=== PATIENT | male | born 1985 | race Caucasian/White ===

== ENCOUNTER 2021-08-12 21:34 | Emergency (ER) | payer MEDICAID, OTHER ==
[~2021-08-12] VITALS: Ht 177.8 cm; Wt 136.0 kg
[2021-08-13] MEDS ORDERED: HYDROCODONE/ACETAMINOPHEN 5/325MG TABLET PO STA (00:11)
[2021-08-13] MEDS ORDERED: MAGNESIUM/ALUMINUM HYDROXIDE/SIMETHICONE 30ML UDC PO STA (00:25)
[2021-08-13] MEDS ORDERED: VISCOUS LIDOCAINE 2% 15 ML UDC PO STA (00:25)
[2021-08-13 00:45] LABS: BASOPHILS % 0.7 % (0.0-2.0); CHLORIDE 112 mEq/L (98-107); EOSINOPHILS % 2.9 % (0.0-5.0); HEMATOCRIT. 43.3 % (42.0-52.0); LYMPHOCYTES % 27.4 % (20.0-50.0); MEAN CORPUSCULAR HEMOGLOBIN 30.8 pg (28.0-32.0); MEAN CORPUSCULAR VOLUME 88.8 fL (80.0-94.0); MEAN PLATELET VOLUME 8.9 fl (7.4-10.4); MONOCYTES % 7.3 % (2.0-8.0); NEUTROPHILS % 61.7 % (40.0-76.0); PLATELET 266 x1000/uL (130-400); RED BLOOD CELL COUNT 4.87 mill/uL (4.7-6.1); RED CELL DISTRIBUTION WIDTH 13.4 % (11.6-14.6)
[2021-08-13 00:49] LABS: ETHANOL BLOOD < 10 mg/dL
[2021-08-13 01:39] LABS: CLARITY URINE CLEAR (CLEAR); COLOR URINE YELLOW (YELLOW); PROTEIN URINE NEGATIVE (NEGATIVE); SPECIFIC GRAVITY URINE 1.033 (1.005-1.030)
[2021-08-13 01:41] LABS: KETONES URINE NEGATIVE (NEGATIVE)
[2021-08-13 01:42] LABS: LEUKOCYTE ESTERASE URINE NEGATIVE (NEGATIVE); NITRITE URINE NEGATIVE (NEGATIVE); OCCULT BLOOD URINE TRACE (NEGATIVE)
[2021-08-13] MEDS ORDERED: MORPHINE SULFATE 2 MG/ML CPJ (NOT FOR IM USE) IV ONE (04:45)
[2021-08-13] MEDS ORDERED: SODIUM CHLORIDE 0.9% 1,000 ML IV ONE (04:45)
[2021-08-13 07:00] VITALS: BP 177/95
== END 2021-08-14 07:12 | disposition short-term general hospital (02) ==
LOC: ER 21:34
DX: K80.20 Calculus of gallbladder without cholecystitis without obstruction (principal); I10 Essential (primary) hypertension; Z90.49 Acquired absence of other specified parts of digestive tract
CPT/HCPCS: 71045; 76705; 93005; 96360; 96361; 99285; J7030

== ENCOUNTER 2023-05-11 17:51 | Inpatient (IN) | payer MEDICAID, OTHER ==
[~2023-05-11] VITALS: Ht 177.8 cm; Wt 145.1 kg
[2023-05-11 18:01] VITALS: O2SAT 98
[2023-05-11] MEDS ORDERED: MORPHINE SULFATE 4 MG/ML CPJ (NOT FOR IM USE) IV STA (18:18)
[2023-05-11] MEDS ORDERED: KETOROLAC 30MG/ML VIAL IV STA (18:18)
[2023-05-11] MEDS ORDERED: SODIUM CHLORIDE 0.9% 1,000 ML IV ONE (18:30)
[2023-05-11 20:02] LABS: BASOPHILS % 0.2 % (0.0-2.0); EOSINOPHILS % 0.2 % (0.0-5.0); HEMATOCRIT. 43.6 % (42.0-52.0); HEMOGLOBIN. 15.5 g/dL (14.0-18.0); LYMPHOCYTES % 14.4 % (20.0-50.0); MEAN CORPUSCULAR HEMOGLOBIN 30.8 pg (28.0-32.0); MEAN CORPUSCULAR VOLUME 86.5 fL (80.0-94.0); MEAN PLATELET VOLUME 9.5 fl (7.4-10.4); MONOCYTES % 8.8 % (2.0-8.0); NEUTROPHILS % 76.4 % (40.0-76.0); PLATELET 238 x1000/uL (130-400); RED BLOOD CELL COUNT 5.04 mill/uL (4.7-6.1)
[2023-05-11 20:05] LABS: CHLORIDE 105 mEq/L (98-107)
[2023-05-11 20:06] LABS: INR 1.1; PROTHROMBIN TIME 11.3 sec (9.6-11.0)
[2023-05-11 21:42] LABS: CLARITY URINE CLEAR (CLEAR); COLOR URINE DARK YELLOW (YELLOW); KETONES URINE 1+ (NEGATIVE); LEUKOCYTE ESTERASE URINE TRACE (NEGATIVE); NITRITE URINE NEGATIVE (NEGATIVE); OCCULT BLOOD URINE 3+ (NEGATIVE); PROTEIN URINE 2+ (NEGATIVE); SPECIFIC GRAVITY URINE 1.036 (1.005-1.030)
[2023-05-12 06:02] VITALS: BP 145/94; PULSE 104; RESP 20; TEMP 98.8
[2023-05-12] MEDS ORDERED: ZOLPIDEM TARTRATE 5MG TABLET PO PRN (06:45)
[2023-05-12] MEDS ORDERED: ONDANSETRON HCL 4MG/2ML INJ IV PRN (06:45)
[2023-05-12] MEDS ORDERED: DOCUSATE SODIUM 100MG CAPSULE PO PRN (06:45)
[2023-05-12] MEDS ORDERED: PIPERACILLIN/TAZ 3.375G PREMIX 50 ML IV SCH (06:45)
[2023-05-12] MEDS ORDERED: CLONIDINE 0.1MG TABLET PO PRN (06:45)
[2023-05-12] MEDS ORDERED: NITROGLYCERIN 0.4MG TABLET SL SL PRN (06:45)
[2023-05-12] MEDS ORDERED: KETOROLAC 15MG/ML VIAL IV PRN (06:45)
[2023-05-12] MEDS ORDERED: ACETAMINOPHEN 325MG TABLET PO PRN ×2 (06:45)
[2023-05-12] MEDS ORDERED: GUAIFENESIN 200MG/10ML SUGAR FREE UDC PO PRN (06:45)
[2023-05-12] MEDS: DEXT 5%/LACTATED RINGERS 1,000 ML IV SCH (06:45)
[2023-05-12] MEDS ORDERED: MAGNESIUM/ALUMINUM HYDROXIDE/SIMETHICONE 30ML UDC PO PRN (06:45)
[2023-05-12] MEDS ORDERED: IPRATROPIUM/ALBUTEROL 0.5-3(2.5)MG/3ML NEB NEB PRN (06:45)
[2023-05-12] MEDS ORDERED: FAMO20TA8 PO (06:55)
[2023-05-12] MEDS ORDERED: CHOL500051 (06:55)
[2023-05-12] MEDS ORDERED: TAMS-11 PO (06:55)
[2023-05-12] MEDS ORDERED: PRAV40TA58 PO (06:55)
[2023-05-12] MEDS ORDERED: AMLO1CAP6 PO (06:55)
[2023-05-12] MEDS ORDERED: ONDA4TAB11 PO (06:55)
[2023-05-12] MEDS ORDERED: HYDR-4001 MT (06:55)
[2023-05-12] MEDS: ENOXAPARIN 40MG/0.4ML SYR SUBCUT SCH (08:00)
[2023-05-12] MEDS: PIPERACILLIN/TAZOBACTAM 3.375G in DEXT 5% WATER 50ML IV SCH ×3 (08:00→22:26)
[2023-05-12 08:08] VITALS: BP 131/78; PULSE 96; RESP 20; TEMP 98
[2023-05-12] MEDS ORDERED: *PATIENT'S OWN MEDICATION STORAGE XX SCH (08:30)
[2023-05-12] MEDS: PANTOPRAZOLE SODIUM 40 MG/VIAL IV SCH (09:00)
[2023-05-12 10:14] LABS: BASOPHILS % 0.3 % (0.0-2.0); EOSINOPHILS % 1.3 % (0.0-5.0); HEMATOCRIT. 42.2 % (42.0-52.0); LYMPHOCYTES % 21.5 % (20.0-50.0); MEAN CORPUSCULAR HEMOGLOBIN 30.8 pg (28.0-32.0); MEAN CORPUSCULAR VOLUME 87.1 fL (80.0-94.0); MONOCYTES % 9.9 % (2.0-8.0); PLATELET 210 x1000/uL (130-400); RED BLOOD CELL COUNT 4.85 mill/uL (4.7-6.1)
[2023-05-12 10:35] LABS: CHLORIDE 108 mEq/L (98-107)
[2023-05-12 10:54] LABS: T4 FREE 1.25 ng/dL (0.76-1.46)
[2023-05-12 13:46] VITALS: BP 142/80; PULSE 84; RESP 20; TEMP 98
[2023-05-12 16:44] VITALS: BP 135/74; PULSE 80; RESP 20; TEMP 97.9
[2023-05-12 20:00] VITALS: BP 113/63; PULSE 86; RESP 19; TEMP 98.3
[2023-05-13] MEDS: DEXT 5%/LACTATED RINGERS 1,000 ML IV SCH ×2 (02:45→12:45)
[2023-05-13 04:00] VITALS: BP 113/60; PULSE 77; RESP 20; TEMP 98.6
[2023-05-13] MEDS: PIPERACILLIN/TAZOBACTAM 3.375G in DEXT 5% WATER 50ML IV SCH ×2 (06:00→13:56)
[2023-05-13] MEDS: ENOXAPARIN 40MG/0.4ML SYR SUBCUT SCH (08:00)
[2023-05-13 08:55] LABS: BASOPHILS % 0.3 % (0.0-2.0); EOSINOPHILS % 4.5 % (0.0-5.0); HEMATOCRIT. 40.7 % (42.0-52.0); HEMOGLOBIN. 14.5 g/dL (14.0-18.0); LYMPHOCYTES % 26.2 % (20.0-50.0); MEAN CORPUSCULAR HEMOGLOBIN 30.9 pg (28.0-32.0); MEAN PLATELET VOLUME 9.3 fl (7.4-10.4); MONOCYTES % 10.2 % (2.0-8.0); NEUTROPHILS % 58.8 % (40.0-76.0); PLATELET 219 x1000/uL (130-400); RED BLOOD CELL COUNT 4.68 mill/uL (4.7-6.1); RED CELL DISTRIBUTION WIDTH 13.1 % (11.6-14.6)
[2023-05-13 08:59] LABS: CHLORIDE 108 mEq/L (98-107)
[2023-05-13] MEDS ORDERED: AMLODIPINE 5MG TABLET PO SCH (09:00)
[2023-05-13] MEDS ORDERED: TAMSULOSIN HCL 0.4MG SR CAPSULE PO SCH (09:00)
[2023-05-13 09:10] LABS: PHOSPHORUS 2.2 mg/dL (2.5-4.9)
[2023-05-13] MEDS: PANTOPRAZOLE SODIUM 40 MG/VIAL IV SCH (09:57)
[2023-05-13 12:00] VITALS: BP 134/88; PULSE 75; RESP 18; TEMP 96.6
[2023-05-13 16:00] VITALS: BP 127/86; PULSE 85; RESP 18; TEMP 97.6
[2023-05-14] MEDS ORDERED: FAMOTIDINE 20MG/2ML VIAL IV SCH (09:00)
== END 2023-05-13 17:40 | disposition home or self-care (01) | DRG 720 ==
LOC: ER 18:57 → MICUSO 22:44 → 6WST 05-12 05:32
PROVIDERS: ADMIT Internal Medicine; ATTEND Internal Medicine
DX: A41.9 Sepsis, unspecified organism (principal); K80.00 Calculus of gallbladder with acute cholecystitis without obstruction; K76.0 Fatty (change of) liver, not elsewhere classified; R16.2 Hepatomegaly with splenomegaly, not elsewhere classified; E66.01 Morbid (severe) obesity due to excess calories; Z68.42 Body mass index [BMI] 45.0-49.9, adult; E78.5 Hyperlipidemia, unspecified; I10 Essential (primary) hypertension; K40.90 Unilateral inguinal hernia, without obstruction or gangrene, not specified as recurrent; N40.0 Benign prostatic hyperplasia without lower urinary tract symptoms; Z90.49 Acquired absence of other specified parts of digestive tract
CPT/HCPCS: 36415; 74176; 76705; 80053; 80061; 81003; 83036; 83605; 83735; 84100; 84145; 84439; 84443; 84484; 85025; 93005; 93970; 99285; C1893; C9113; J1650; J1885; J2270; J2543; J7030; J7060; J7121